=== PATIENT | male | born 1965 | race African-American/Black ===

== ENCOUNTER 2018-05-09 23:53 | Emergency (ER) | payer MEDICAID ==
[~2018-05-09] VITALS: Ht 170.2 cm; Wt 62.8 kg
[2018-05-09 23:53] VITALS: BP 129/94
--- NOTE | 2018-05-10 00:01 | NUR ---
[facility] REPORT #[id number]
--- NOTE | 2018-05-10 00:03 | NUR ---
PT AMBULATED TO BED 2
[2018-05-10] MEDS ORDERED: CYCLOBENZAPRINE 10 MG TAB PO ONE (00:15)
[2018-05-10] MEDS ORDERED: KETOROLAC 30 MG/ML VIAL IM ONE (00:15)
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
[2018-05-10 00:56] VITALS: BP 117/75
== END 2018-05-10 00:57 | disposition home or self-care (01) ==
LOC: MED 23:53
DX: S39.012A Strain of muscle, fascia and tendon of lower back, initial encounter (principal); M25.561 Pain in right knee; Z88.0 Allergy status to penicillin; Z88.8 Allergy status to other drugs, medicaments and biological substances; V89.2XXA Person injured in unspecified motor-vehicle accident, traffic, initial encounter; Y93.89 Activity, other specified; Y99.8 Other external cause status; Y92.89 Other specified places as the place of occurrence of the external cause
CPT/HCPCS: 73562; 96372; 99284; J1885